=== PATIENT | female | born 1960 | race African-American/Black ===

== ENCOUNTER 2017-08-24 04:13 | Emergency (ER) | payer OTHER ==
[~2017-08-24] VITALS: Ht 157.5 cm; Wt 69.0 kg
[2017-08-24 04:16] VITALS: BP 120/58; PULSE 61; RESP 18; TEMP 98.2; O2SAT 98
--- NOTE | 2017-08-24 04:46 | PD ---
HPI Chief Complaint: Pain: Acute or Chronic Time Seen by Provider: 04:42 Travel History International Travel<30 days: No Contact w/Intl Traveler<30days: No Traveled to known affect area: No History of Present Illness HPI The patient is a 57-year-old female that complains of left lower leg but primarily left posterior thigh pain for a month. The patient states that she has 2 brothers that have DVT. She denies any trauma, any history of cancer, any shortness of breath, any chest pain, hemoptysis, syncopal or near syncopal spells or fever. She states that she took Aleve without relief tonight and this made her decide to come in. The patient had the same thing in the right leg a year or 2 ago and was treated with anti-inflammatories and eventually had went away. 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) High Cholesterol: No Chest Pain: No Congestive Heart Failure: No COPD: No Cerebrovascular Accident: No Diabetes: No GERD: No Headaches: No Hepatitis: No Hiatal Hernia: No Hypertension: No Kidney Stones: No Myocardial Infarction: No Renal Failure: No Seizures: No Sleep Apnea: No Thyroid Disease: No Ulcer: No Tetanus Vaccination: < 5 Years Influenza Vaccination: No ?: Not Tubal Ligation: Yes Past Surgical History AICD: No Pacemaker: No Other Surgery: No Social History Alcohol Use: No Tobacco Use: No Substance Use: No Allergies-Medications (Allergen,Severity, Reaction): Coded Allergies: No Known Allergies (Verified Allergy, Severe, 08/24/17) Reported Meds & Prescriptions Reported Meds & Active Scripts Active No Active Prescriptions or Reported Medications Review of Systems Except as stated in HPI: all other systems reviewed are Neg Physical Exam Narrative GENERAL: The patient is alert, oriented 3 in slight apparent distress with her left leg pain. Her vital signs are normal. SKIN: Focused skin assessment warm/dry. HEAD: Atraumatic. Normocephalic. EYES: Pupils equal and round. No scleral icterus. No injection or drainage. ENT: No nasal bleeding or discharge. Mucous membranes pink and moist. NECK: Trachea midline. No JVD. CARDIOVASCULAR: Regular rate and rhythm. No murmur appreciated. RESPIRATORY: No accessory muscle use. Clear to auscultation. Breath sounds equal bilaterally. GASTROINTESTINAL: Abdomen soft, non-tender, nondistended. Hepatic and splenic margins not palpable. MUSCULOSKELETAL: No obvious deformities. No clubbing. No cyanosis. No edema. There is tenderness present over the posterior thigh. Homans sign is negative and there is no cord palpated in the calf. There is no swelling of the left side as compared to the right. NEUROLOGICAL: Awake and alert. No obvious cranial nerve deficits. Motor grossly within normal limits. Normal speech. PSYCHIATRIC: Appropriate mood and affect; insight and judgment normal. Data Data Last Documented VS Vital Signs Date Time Temp Pulse Resp B/P (MAP) Pulse Ox O2 Delivery O2 Flow Rate FiO2 08/24/17 04:16 98.2 61 18 120/58 (78) 98 Orders Orders Us Leg Venous Doppler (08/24/17 04:46) Ketorolac Inj (Toradol Inj) (08/24/17 05:00) MDM Medical Decision Making Medical Screen Exam Complete: Yes Emergency Medical Condition: Yes Medical Record Reviewed: Yes Interpretation(s) The ultrasound shows no evidence of DVT. Differential Diagnosis Musculoskeletal pain, DVT, fasciitis Narrative Course The patient has musculoskeletal pain. It is now 0620 and the patient feels better after the Toradol shot. Diagnosis Primary Impression: Myofascial muscle pain Additional Instructions: As we discussed, you can try a heating pad on its lowest setting an interposed a towel between your skin and the pad to avoid cox. Warmth is useful but hot does not help anymore. The Motrin is one tablet 3 times a day to develop high levels of anti-inflammatory effect. Follow-up with your primary care physician. Taking Motrin/ibuprofen at this level may damage her kidneys as we already discussed. Make sure your primary care physician follows up on this. Med/Other Pt SpecificInfo: Prescription(s) given Scripts Oxycodone-Acetaminophen (Percocet) 5-325 mg Tab 1 TAB PO Q6H Y for PAIN, #30 TAB 0 Refills Prov: Darryn Dumont MD 08/24/17 Ibuprofen (Ibuprofen) 600 Mg Tab 600 MG PO TID, #44 TAB 0 Refills Prov: Darryn Dumont MD 08/24/17 Disposition: 01 DISCHARGE HOME Condition: Stable Darryn Dumont MD Aug 24, 2017 04:46
[2017-08-24] MEDS ORDERED: KETOROLAC TROMETHAMINE 60 MG/2 ML (IM) VIAL IM ONE (05:00)
--- NOTE | 2017-08-24 06:06 | RADRPT ---
EXAM DATE/TIME: 08/24/2017 05:47 [facility] COMPARISON: No previous studies available for comparison. INDICATIONS : Left leg pain. MEDICAL HISTORY : Vision problems. Cardiac disorders. SURGICAL HISTORY : Tubal ligation. Cardiac cath. Spontaneous coronary artery dissection. ENCOUNTER: Initial ACUITY: 1 month PAIN SCORE: 10/10 LOCATION: Left leg. TECHNIQUE: Venous ultrasound of the leg was performed from the inguinal ligament to the proximal calf. Real-glenn e, color Doppler and spectral tracing, compression and augmentation techniques were used. FINDINGS: There is normal compressibility of the deep venous system from the inguinal region to the proximal ca lf. No echogenic clot is seen in the lumen of the common femoral, femoral, popliteal, and posterior tibial veins. There is a normal response of the venous system to proximal and distal augmentation an d respiration. CONCLUSION: Normal examination. Solitario Licea MD on August 24, 2017 at 6:04 Board Certified Radiologist. This report was verified electronically.
[2017-08-24 06:15] VITALS: BP 118/56; PULSE 68; RESP 16; O2SAT 97
[2017-08-24] MEDS ORDERED: PERC5TAB12 PO (06:24)
[2017-08-24] MEDS ORDERED: IBUP-232 PO (06:24)
[2017-08-24 06:29] VITALS: RESP 16
== END 2017-08-24 06:51 | disposition home or self-care (01) ==
LOC: PHED 04:13
DX: M79.652 Pain in left thigh (principal)
CPT/HCPCS: 93971; 96372; 99284; J1885